=== PATIENT | female | born 1980 | race Hispanic/Latino ===

== ENCOUNTER 2019-11-23 14:25 | Emergency (ER) | payer BC ==
[~2019-11-23] VITALS: Ht 170.2 cm; Wt 68.0 kg
[2019-11-23 15:31] LABS: BASOPHILS % 0.3 % (0.0-1.0); EOSINOPHILS # (AUTO) 0.1 (0.0-0.4); EOSINOPHILS % 1.3 % (0.0-6.0); HEMOGLOBIN 9.4 g/dL (12.0-16.0); LYMPHOCYTES # (AUTO) 3.6 (1.0-3.2); LYMPHOCYTES % 39.3 % (18.0-39.1); MEAN CORPUSCULAR HEMOGLOBIN 28.7 pg (28-32); MEAN CORPUSCULAR HGB CONC 32.4 g/dL (31-35); MEAN CORPUSCULAR VOLUME 88.7 fL (81-99); MONOCYTES # (AUTO) 0.5 (0.2-0.8); MONOCYTES % 5.5 % (4.4-11.3); NEUTROPHILS # (AUTO) 4.9 (2.1-6.9); NEUTROPHILS % 53.2 % (38.7-80.0); PLATELET COUNT 357 x10e3/uL (140-360); RED BLOOD COUNT 3.27 x10e6/uL (3.6-5.1); RED CELL DISTRIBUTION WIDTH 13.9 % (11.7-14.4)
[2019-11-23 15:32] LABS: BILIRUBIN,URINE NEGATIVE (NEGATIVE); CLARITY,URINE CLEAR (CLEAR); COLOR,URINE YELLOW (YELLOW); KETONES,URINE NEGATIVE (NEGATIVE); LEUKOCYTE ESTERASE ,URINE NEGATIVE (NEGATIVE); NITRITE,URINE NEGATIVE (NEGATIVE); PROTEIN,URINE DIPSTICK NEGATIVE (NEGATIVE); URINE UROBILINOGEN 0.2 mg/dL (0.2 - 1)
[2019-11-23 15:45] LABS: EPITHELIAL CELLS,URINE RARE /LPF
[2019-11-23 15:48] LABS: ANION GAP 11.6 mmol/L (8-16); BLOOD UREA NITROGEN 8 mg/dL (7-26); BUN/CREATININE RATIO 11 (6-25); CALCIUM 8.3 mg/dL (8.4-10.2); CARBON DIOXIDE 22 mmol/L (22-29); CHLORIDE 105 mmol/L (98-107); EST GLOMERULAR FILTRATION RATE > 60 ML/MIN (60-); GLUCOSE 89 mg/dL (74-118); POTASSIUM 3.6 mmol/L (3.5-5.1); SODIUM 135 mmol/L (136-145)
--- NOTE | 2019-11-23 17:53 | Emergency Department Note ---
History of Present Illnes History of Present Illness Chief Complaint: Genitourinary History of Present Illness This is a 39 year old female arrives to the ED with complaints of vaginal bleeding, patient states she's been trying to get for the last 18 years and noted to have a positive test at home on November 07. Patient is concerned that the vaginal bleeding may mean she lost her . Chief Complaint Comment PATIENT IN FROM HOME WITH COMPLAINTS OF VAGINAL BLEEDING AFTER SEX LAST NIGHT AT APPROX 2130; STATES SHE IS APPROX 2 WEEKS LATE AND HAD 3 POSITIVE TESTS AT HOME, LMP 10/12/2019. PATIENT STATES THAT SHE CALLED HER DOCTOR AND WAS TOLD TO COME TO THE ER FOR AN ULTRASOUND, DENIES PAIN, APPEARS IN NO DISTRESS, RESP EVEN AND NONLABORED, AMBULATORY WITHOUT ASSISTANCE Historian: Patient Arrival Mode: Car Onset (how long ago): day(s) Severity: mild Onset quality: sudden Duration (how long): day(s) Timing of current episode: intermittent Chronicity: new (KENZIE JOHN DO) Past Medical/Family History Physician Review I have reviewed the patient's past medical and family history. Any updates have been documented here. (KENZIE JOHN DO) Past Medical History Recent Fever: No Clinical Suspicion of Infectio: No New/Unexplained Change in Ment: No Other Medical History: RHEUMATOID ARTHRITIS PSORIATIC ARTHRITIS PCOS PSORIASIS Past Surgical History: Appendectomy, Hip Replacement, Bariatric Surgery Other Surgery: GASTRIC SLEEVE 2018 OVARIAN CYSTS (KENZIE JOHN DO) Social History Physically hurt or threatened: No (KENZIE JOHN DO) Review of Systems Review of Systems Constitutional: Reports no symptoms EENTM: Reports no symptoms Cardiovascular: Reports no symptoms Respiratory: Reports no symptoms Gastrointestinal: Reports no symptoms Genitourinary: Reports as per HPI Musculoskeletal: Reports no symptoms Integumentary: Reports no symptoms Neurological: Reports no symptoms Psychological: Reports no symptoms Endocrine: Reports no symptoms Hematological/Lymphatic: Reports no symptoms (KENZIE JOHN DO) Physical Exam Related Data Allergies: Coded Allergies: No Known Allergies (Unverified , 11/23/19) Triage Vital Signs Vital Signs Date Time Temp Pulse Resp B/P (MAP) Pulse Ox O2 Delivery O2 Flow Rate FiO2 11/23/19 14:53 98.9 61 18 152/79 98 Room Air Vital signs reviewed: Yes (SANDHIR, AMBICA, DO) Physical Exam CONSTITUTIONAL Constitutional: Present well-developed, Present well-nourished HENT HENT: Present normocephalic, Present atraumatic, Present oropharynx clear/mo ist, Present nose normal HENT L/R: Present left ext ear normal, Present right ext ear normal EYES Eyes: Reports PERRL, Reports conjunctivae normal NECK Neck: Present ROM normal PULMONARY Pulmonary: Present effort normal, Present breath sounds normal CARDIOVASCULAR Cardiovascular: Present regular rhythm, Present heart sounds normal, Present capillary refill normal, Present normal rate GASTROINTESTINAL Abdominal: Present soft, Present nontender, Present bowel sounds normal GENITOURINARY Genitourinary: Present exam deferred SKIN Skin: Present warm, Present dry MUSCULOSKELETAL Musculoskeletal: Present ROM normal NEUROLOGICAL Neurological: Present alert, Present oriented x 3, Present no gross motor or sensory deficits PSYCHOLOGICAL Psychological: Present mood/affect normal, Present judgement normal (KENZIE JOHN, ) Results Laboratory Result Diagram: 11/23/19 1500 11/23/19 1500 Laboratory Laboratory Tests Test 11/23/19 15:00 White Blood Count 9.17 x10e3/uL (4.8-10.8) Red Blood Count 3.27 x10e6/uL (3.6-5.1) Hemoglobin 9.4 g/dL (12.0-16.0) Hematocrit 29.0 % (34.2-44.1) Mean Corpuscular Volume 88.7 fL (81-99) Mean Corpuscular Hemoglobin 28.7 pg (28-32) Mean Corpuscular Hemoglobin Concent 32.4 g/dL (31-35) Red Cell Distribution Width 13.9 % (11.7-14.4) Platelet Count 357 x10e3/uL (140-360) Neutrophils (%) (Auto) 53.2 % (38.7-80.0) Lymphocytes (%) (Auto) 39.3 % (18.0-39.1) Monocytes (%) (Auto) 5.5 % (4.4-11.3) Eosinophils (%) (Auto) 1.3 % (0.0-6.0) Basophils (%) (Auto) 0.3 % (0.0-1.0) Neutrophils # (Auto) 4.9 (2.1-6.9) Lymphocytes # (Auto) 3.6 (1.0-3.2) Monocytes # (Auto) 0.5 (0.2-0.8) Eosinophils # (Auto) 0.1 (0.0-0.4) Basophils # (Auto) 0.0 (0.0-0.1) Absolute Immature Granulocyte (auto 0.04 x10e3/uL (0-0.1) Urine Color Yellow (YELLOW) Urine Clarity Clear (CLEAR) Urine pH 5.5 (5 - 7) Urine Specific [place] 1.010 (1.010-1.025) Urine Protein Negative (NEGATIVE) Urine Glucose (UA) Negative (NEGATIVE) Urine Ketones Negative (NEGATIVE) Urine Blood Trace (NEGATIVE) Urine Nitrite Negative (NEGATIVE) Urine Bilirubin Negative (NEGATIVE) Urine Urobilinogen 0.2 mg/dL (0.2 - 1) Urine Leukocyte Esterase Negative (NEGATIVE) Urine RBC None /HPF (0-5) Urine WBC None /HPF (0-5) Urine Epithelial Cells Rare /LPF (NONE) Urine Bacteria None /HPF (NONE) Sodium Level 135 mmol/L (136-145) Potassium Level 3.6 mmol/L (3.5-5.1) Chloride Level 105 mmol/L (98-107) Carbon Dioxide Level 22 mmol/L (22-29) Anion Gap 11.6 mmol/L (8-16) Blood Urea Nitrogen 8 mg/dL (7-26) Creatinine 0.70 mg/dL (0.57-1.11) Estimat Glomerular Filtration Rate > 60 ML/MIN (60-) BUN/Creatinine Ratio 11 (6-25) Glucose Level 89 mg/dL (74-118) Calcium Level 8.3 mg/dL (8.4-10.2) Human Chorionic Gonadotropin, Quant 4321.86 mIU/mL (0-10) (KENZIE JOHN, DO) Lab results reviewed: Yes (FERCHO BUI MD) Imaging Imaging results reviewed: Yes (KENZIE JOHN, ) Imaging results reviewed: Yes Impressions Procedure: [id number] US/US OB TRANSVAG 1ST TRI SINGLE Exam Date: 11/23/19 Exam Time: 1652 REPORT STATUS: Signed EXAM: Obstetric Pelvic Ultrasound INDICATION: Vaginal bleeding COMPARISON: None TECHNIQUE: Transabdominal and transvaginal evaluation of the pelvis was performed in the transverse and longitudinal planes. CLINICAL HISTORY: 39 year old G1, P0; last menstrual period: 10/12/2019 FINDINGS: Uterus: Orientation: Anteverted Size: 7.8 x 4.4 x 5.5 cm, enlarged Mass: None Cervix: Nabothian cysts Gestational Sac: Location: Intrauterine Average sac diameter: 0.71 cm Estimated sonographic GA: 5 weeks, 2 days Appearance: Normal in contour Subchorionic hemorrhage: None Yolk sac: Not visualized. Embryo/Fetus: None visualized Right ovary Size: 2.7 x 1.9 x 2.1 cm Mass/Cyst: None. 0.8 x 0.9 x 0.9 cm cystic, mostly anechoic lesion with linear internal echoes, likely representing a small hemorrhagic cyst. Left ovary Size: 3.1 x 1.3 x 1.8 cm Mass/Cyst: None Cul-de-sac: No free fluid IMPRESSION: 1. Intrauterine of uncertain viability. This may represent early . No subchorionic hemorrhage is noted. Recommend follow-up transvaginal ultrasound in 1-2 weeks classification: Viable: can potentially result in a liveborn baby Visualized embryo with FHT Nonviable: Findings diagnostic of failure Ectopic CRL >= 7 mm and no FHT MSD >= 25 mm and no embryo No FHT >= 2 weeks after US showed GS w/o YS No FHT >= 11 days after US showed GS w/ YS Intrauterine of uncertain viability: Intrauterine GS with no FHT and no definite findings of failure of unknown location: Positive urine or serum test and no IUP or ectopic on US ?@ Diagnostic Criteria for Nonviable Early in the First Trimester N Engl J Med 2013;369:1443-51. DOI: [id number] Signed by: Dr. Tina Pena M.D. on 11/23/2019 6:06 PM Dictated By: TINA PENA MD 05 Transcribed By: AMINAH on 11/23/191805 COPY TO: KENZIE JOHN, DO~ (FERCHO BUI MD) Assessment & Plan Medical Decision Making MDM 39-year-old female arrived to the ED with vaginal bleeding in , sign out given to Dr. Bui to follow-up pelvic ultrasound. (KENZIE JOHN DO) MDM WITH BLEEDING LABS, PELVIS U/S ORDERED TO EVAL FOR IUP (FERCHO BUI MD) Assessment & Plan Final Impression: (1) Threatened miscarriage (FERCHO BUI MD) Depart Disposition: HOME, SELF-CARE Last Vital Signs Date Time Temp Pulse Resp B/P (MAP) Pulse Ox O2 Delivery O2 Flow Rate FiO2 11/23/19 14:53 98.9 61 18 152/79 98 Room Air (KENZIE JOHN DO) KENZIE JOHN DO Nov 23, 2019 17:53 FERCHO BUI MD Nov 23, 2019 19:14
--- NOTE | 2019-11-23 18:10 | Diagnostic Imaging Report ---
EXAM: Obstetric Pelvic Ultrasound INDICATION: Vaginal bleeding COMPARISON: None TECHNIQUE: Transabdominal and transvaginal evaluation of the pelvis was performed in the transverse and longitudinal planes. CLINICAL HISTORY: 39 year old G1, P0; last menstrual period: 10/12/2019 FINDINGS: Uterus: Orientation: Anteverted Size: 7.8 x 4.4 x 5.5 cm, enlarged Mass: None Cervix: Nabothian cysts Gestational Sac: Location: Intrauterine Average sac diameter: 0.71 cm Estimated sonographic GA: 5 weeks, 2 days Appearance: Normal in contour Subchorionic hemorrhage: None Yolk sac: Not visualized. Embryo/Fetus: None visualized Right ovary Size: 2.7 x 1.9 x 2.1 cm Mass/Cyst: None. 0.8 x 0.9 x 0.9 cm cystic, mostly anechoic lesion with linear internal echoes, likely representing a small hemorrhagic cyst. Left ovary Size: 3.1 x 1.3 x 1.8 cm Mass/Cyst: None Cul-de-sac: No free fluid IMPRESSION: 1. Intrauterine of uncertain viability. This may represent early . No subchorionic hemorrhage is noted. Recommend follow-up transvaginal ultrasound in 1-2 weeks classification: Viable: can potentially result in a liveborn baby Visualized embryo with FHT Nonviable: Findings diagnostic of failure Ectopic CRL >= 7 mm and no FHT MSD >= 25 mm and no embryo No FHT >= 2 weeks after US showed GS w/o YS No FHT >= 11 days after US showed GS w/ YS Intrauterine of uncertain viability: Intrauterine GS with no FHT and no definite findings of failure of unknown location: Positive urine or serum test and no IUP or ectopic on US ?@ Diagnostic Criteria for Nonviable Early in the First Trimester N Engl J Med 2013;369:1443-51. DOI: [id number] Signed by: Dr. Anton Pena M.D. on 11/23/2019 6:06 PM
--- OUTSIDE RECORDS SUMMARY | 2019-11-24 10:26 | XMS REPORT | Continuity of Care Document ---
Author Author [facility] t Organization [facility] Address [address] [place] [address] Phone Unavailable Care Team Providers [employer] Name Role Phone DO Remi CHANDLER PCP Arron JOHN Attphys Unavailable BLAISE HERNANDEZ Attphys Unavailable Payers Payer Name Policy Type Policy Number Effective Date Expiration Date S ource [employer] [place] Ppo [id number] [facility] Problems Condition Name Condition Details Condition Category Status Onset Date Resolution Date Last Treatment Date Treating Clinician Comments Source Threatened Problem Active [facility] Allergies, Adverse Reactions, Alerts Allergy Name Allergy Type Status Severity Reaction(s) Onset Date Inacti ve Date Treating Clinician Comments Source No Known Allergies DA Active U 2012-07-23 00:00:00 [facility] Social History Social Habit Start Date Stop Date Quantity Comments Source Sex Assigned At 1980 00:00:00 1980 00:00:00 Female [facility] Medications This patient has no known medications. Vital Signs Vital Name Observation Time Observation Value Comments Source Weight 2019-11-23 14:53:00 150 [lb_av] [facility] BMI (Body Mass Index) 2019-11-23 14:53:00 23.5 kg/m2 [facility] Procedures Procedure Date / Time Performed Performing Clinician Neftaly e Obstetrical transvaginal ultrasound in first trimester 2019-11-07 7 00:00:00 [facility] Plan of Care Planned Activity Planned Date Details Comments Source Instructions [facility] Encounters Start Date/Time End Date/Time Encounter Type Admission Type Attendi RUST Care Department Encounter ID Source 2019-11-23 15:30:00 2019-11-23 19:13:00 Departed Emergency Room 1 KENZIE JOHN [facility] [id number] I [facility] 2019-06-30 00:00:00 2019-06-30 00:00:00 Outpatient ZELALEM HERNANDEZ IN [facility] [id number] Enio Atkins 2019-06-29 00:00:00 2019-06-29 00:00:00 Outpatient ZELALEM HERNANDEZ IN [facility] [id number] Steen Milly Results Test Description Test Time Test Comments Results Result Comments Source US OB TRANSVAG 1ST TRI SINGLE 2019-11-23 18:03:00 [facility] [address] [address] Patient Name: CHARANJIT IBARRA MR #: [id number] : 1980 Age/Sex: 39/F Req #: [id number] Adm Physician: Ordered by: KENZIE JOHN DO Report #: [id number] Location: ER Room/Bed: Procedure: [id number] US/US OB TRANSVAG 1ST TRI SINGLE Exam Date: 11/23/19 Exam Time: 1652 REPORT STATUS: Signed EXAM: Obstetric Pelvic Ultrasound INDICATION: Vaginal bleeding COMPARISON: None TECHNIQUE: Transabdominal and transvaginal evaluation of the pelvis was performed in the transverse and longitudinal planes. CLINICAL HISTORY: 39 year old G1, P0; last menstrual period: 10/12/2019 FINDINGS: Uterus: Orientation: Anteverted Size: 7.8 x 4.4 x 5.5 cm, enlarged Mass: None Cervix: Nabothian cysts Gestational Sac: Location: Intrauterine Average sac diameter: 0.71 cm Estimated sonographic GA: 5 weeks, 2 days Appearance: Normal in contour Subchorionic hemorrhage: None Yolk sac: Not visualized. Embryo/Fetus: None visualized Right ovary Size: 2.7 x 1.9 x 2.1 cm Mass/Cyst: None. 0.8 x 0.9 x 0.9 cm cystic, mostly anechoic lesion with linear internal echoes, likely representing a small hemorrhagic cyst. Left ovary Size: 3.1 x 1.3 x 1.8 cm Mass/Cyst: None Cul-de-sac: No free fluid IMPRESSION: 1. Intrauterine of uncertain viability. This may represent early . No subchorionic hemorrhage is noted. Recommend follow-up transvaginal ultrasound in 1-2 weeks classification: Viable: can potentially result in a liveborn baby Visualized embryo with FHT Nonviable: Findings diagnostic of failure Ectopic CRL >= 7 mm and no FHT MSD >= 25 mm and no embryo No FHT >= 2 weeks after US showed GS w/o YS No FHT >= 11 days after US showed GS w/ YS Intrauterine of uncertain viability: Intrauterine GS with no FHT and no definite findings of failure of unknown location: Positive urine or serum test and no IUP or ectopic on US ?@ Diagnostic Criteria for Nonviable Early in the First Trimester N Engl J Med 2013;369:1443-51. DOI: [id number] Signed by: Dr. Anton Pena M.D. on 11/23/2019 6:06 PM Dictated By: ANTON PENA MD 05 Transcribed By: AMINAH on 11/23/191805 COPY TO: KENZIE JOHN, Blood leukocytes automated count (number/volume) 2019-11-23 15:00:00 Test Item White Blood Count (test code = 6690-2) 9.17 4.8-10.8 [facility] count (number/volume)2019-11-23 15:00:00* Test Item Value Reference Range Interpretation Comments Red Blood Count (test code = 789-8) 3.27 3.6-5.1 [facility] hemoglobin measurement (moles/volume)2019-11-23 15:00:00* Test Item Value Reference Range Interpretation Comments Hemoglobin (test code = 99896-7) 9.4 12.0-16.0 [facility] CenterAutomated blood hematocrit (volume fraction)2019-11-23 15:00:00* Test Item Value Reference Range Interpretation Comments Hematocrit (test code = 4544-3) 29.0 34.2-44.1 [facility] CenterAutomated erythrocyte mean corpuscular vrxgcv3237-25-85 15:00:00* Test Item Value Reference Range Interpretation Comments Mean Corpuscular Volume (test code = 787-2) 88.7 81-99 [facility] CenterAutomated erythrocyte mean corpuscular hemoglobin (mass per erythrocyte)2019-11-23 15:00:00* Test Item Value Reference Range Interpretation Comments Mean Corpuscular Hemoglobin (test code = 785-6) 28.7 28-32 [facility] CenterAutomated erythrocyte mean corpuscular hemoglobin concentration measurement (mass/volume)2019-11-23 15:00:00* Test Item Value Reference Range Interpretation Comments Mean Corpuscular Hemoglobin Concent (test code = 786-4) 32.4 31-35 [facility] CenterRDW ZvwDm-Biw4025-54-17 15:00:00* Test Item Value Reference Range Interpretation Comments Red Cell Distribution Width (test code = 02799-7) 13.9 11.7 -14.4 [facility] CenterAutomated blood platelet count (count/volume)2019-11-23 15:00:00* Test Item Value Reference Range Interpretation Comments Platelet Count (test code = 777-3) 357 140-360 [facility] CenterAutomated blood segmented neutrophil count as percentage of total jbinwpdqog2865-51-62 15:00:00* Test Item Value Reference Range Interpretation Comments Neutrophils (%) (Auto) (test code = 10909-9) 53.2 38.7-80.0 [facility] CenterAutom[facility] blood lymphocyte count as percentage ot total tsaaqejnsi2080-09-03 15:00:00* Test Item Value Reference Range Interpretation Comments Lymphocytes (%) (Auto) (test code = 736-9) 39.3 18.0-39.1 [facility] CenterAutom[facility] blood monocyte count as percentage of total enfiobjzjw7094-29-99 15:00:00* Test Item Value Reference Range Interpretation Comments Monocytes (%) (Auto) (test code = 5905-5) 5.5 4.4-11.3 [facility] CenterAutomated blood eosinophil count as percentage of total xibsrrvdrr2561-46-54 15:00:00* Test Item Value Reference Range Interpretation Comments Eosinophils (%) (Auto) (test code = 713-8) 1.3 0.0-6.0 [facility] CenterAutomated blood basophil count as percentage of total kvrugnuwev8849-49-84 15:00:00* Test Item Value Reference Range Interpretation Comments Basophils (%) (Auto) (test code = 706-2) 0.3 0.0-1.0 [facility] CenterFluoroscopic procedure less than one hour vjvbzjxw7112-65-67 15:00:00* Test Item Value Reference Range Interpretation Comments IM GRANULOCYTES % (test code = IM GRANULOCYTES %) 0.4 0.0- 1.0 [facility] CenterAutom[facility] blood neutrophil count 2019-11-23 15:00:00* Test Item Value Reference Range Interpretation Comments Neutrophils # (Auto) (test code = 751-8) 4.9 2.1-6.9 [facility] CenterBlood lymphocytes count (number/volume) 2019-11-23 15:00:00* Test Item Value Reference Range Interpretation Comments Lymphocytes # (Auto) (test code = 11030-8) 3.6 1.0-3.2 [facility] CenterBlood monocytes automated count (number/volume)2019-11-23 15:00:00* Test Item Value Reference Range Interpretation Comments Monocytes # (Auto) (test code = 742-7) 0.5 0.2-0.8 [facility] CenterAutomated blood eosinophil count 2019-11-23 15:00:00* Test Item Value Reference Range Interpretation Comments Eosinophils # (Auto) (test code = 711-2) 0.1 0.0-0.4 [facility] CenterAutomated blood basophil count (count/volume)2019-11-23 15:00:00* Test Item Value Reference Range Interpretation Comments Basophils # (Auto) (test code = 704-7) 0.0 0.0-0.1 [facility] CenterFluoroscopic procedure less than one hour bwkogctw1832-97-60 15:00:00* Test Item Value Reference Range Interpretation Comments Absolute Immature Granulocyte (auto (lizeth t code = Absolute Immature Granulocyte (auto) 0.04 0-0.1 [facility] CenterUrine color wtomqxpahdzis0160-33-42 15:00:00* Test Item Value Reference Range Interpretation Comments Urine Color (test code = 5778-6) YELLOW YELLOW [facility] CenterUrine wlyhxjl9820-78-59 15:00:00* Test Item Value Reference Range Interpretation Comments Urine Clarity (test code = 42120-4) CLEAR CLEAR [facility] Centerpecific gravity of Urine by Test strip 2019-11-23 15:00:00* Test Item Value Reference Range Interpretation Comments Urine Specific [place] (test code = 5811-5) 1.010 1.010-1.02 5 [facility] CenterU[facility] pH measurement by automated test wdhss3603-08-14 15:00:00* Test Item Value Reference Range Interpretation Comments Urine pH (test code = 65188-9) 5.5 5-7 [facility] CenterUrine leukocyte esterase detection by reducqkm1111-49-89 15:00:00* Test Item Value Reference Range Interpretation Comments Urine Leukocyte Esterase (test code = 5799-2) NEGATIVE NEGATIVE [facility] CenterUrine nitrite jcewuxogd5617-66-90 15:00:00* Test Item Value Reference Range Interpretation Comments Urine Nitrite (test code = 35344-0) NEGATIVE NEGATIVE [facility] CenterUrine protein measurement by test strip (mass/volume)2019-11-23 15:00:00* Test Item Value Reference Range Interpretation Comments Urine Protein (test code = 5804-0) NEGATIVE NEGATIVE [facility] CenterUrine glucose fhecmsrmy3250-95-86 15:00:00* Test Item Value Reference Range Interpretation Comments Urine Glucose (UA) (test code = 2349-9) NEGATIVE NEGATIVE [facility] CenterUrine ketones detection by automated test iqpul4238-21-51 15:00:00* Test Item Value Reference Range Interpretation Comments Urine Ketones (test code = 50523-7) NEGATIVE NEGATIVE [facility] CenterUrine urobilinogen measurement by test strip (mass/volume)2019-11-23 15:00:00* Test Item Value Reference Range Interpretation Comments Urine Urobilinogen (test code = 00713-4) 0.2 0.2-1 [facility] CenterUrine total bilirubin measurement (mass/volume)2019-11-23 15:00:00* Test Item Value Reference Range Interpretation Comments Urine Bilirubin (test code = 1978-6) NEGATIVE NEGATIVE [facility] CenterUrine erythrocytes hhqjepjko5603-58-25 15:00:00* Test Item Value Reference Range Interpretation Comments Urine Blood (test code = 69020-7) TRACE NEGATIVE [facility] CenterAutomated urine sediment leukocyte count by microscopy (number/high power field)2019-11-23 15:00:00* Test Item Value Reference Range Interpretation Comments Urine WBC (test code = 5821-4) NONE 0-5 [facility] CenterErythrocytes detection in urine sediment by light wyktxzmtyw4484-81-20 15:00:00* Test Item Value Reference Range Interpretation Comments Urine RBC (test code = 79396-2) NONE 0-5 [facility] CenterBacteria detection in urine sediment by light faucsftxlr7104-60-67 15:00:00* Test Item Value Reference Range Interpretation Comments Urine Bacteria (test code = 00217-8) NONE NONE [facility] CenterEpithelial cells detection in urine sediment by light pwzaeobypp0740-92-38 15:00:00* Test Item Value Reference Range Interpretation Comments Urine Epithelial Cells (test code = 55067-9) RARE NONE [facility] Centererum or plasma sodium measurement (moles/volume)2019-11-23 15:00:00* Test Item Value Reference Range Interpretation Comments Sodium Level (test code = 2951-2) 135 136-145 [facility] Centererum or plasma potassium measurement (moles/volume)2019-11-23 15:00:00* Test Item Value Reference Range Interpretation Comments Potassium Level (test code = 2823-3) 3.6 3.5-5.1 [facility] Centererum or plasma chloride measurement (moles/volume)2019-11-23 15:00:00* Test Item Value Reference Range Interpretation Comments Chloride Level (test code = 2075-0) 105 98-107 [facility] Centererum or plasma carbon dioxide, total measurement (moles/volume)2019-11-23 15:00:00* Test Item Value Reference Range Interpretation Comments Carbon Dioxide Level (test code = 2028-9) 22 22-29 [facility] Centererum or plasma anion wod3966-00-15 15:00:00* Test Item Value Reference Range Interpretation Comments Anion Gap (test code = 58973-1) 11.6 8-16 [facility] Centererum or plasma urea nitrogen measurement (mass/volume)2019-11-23 15:00:00* Test Item Value Reference Range Interpretation Comments Blood Urea Nitrogen (test code = 3094-0) 8 7-26 [facility] Centererum or plasma creatinine measurement (mass/volume)2019-11-23 15:00:00* Test Item Value Reference Range Interpretation Comments Creatinine (test code = 2160-0) 0.70 0.57-1.11 [facility] Centererum or plasma urea nitrogen/creatinine mass zbehy4899-67-27 15:00:00* Test Item Value Reference Range Interpretation Comments BUN/Creatinine Ratio (test code = 3097-3) 11 6-25 [facility] CenterEstimated glomerular filtration rate (GFR) npgcafdyanrch9062-25-59 15:00:00* Test Item Value Reference Range Interpretation Comments Estimat Glomerular Filtration Rate (test code = 215556220) > 60 >60 Ranges were taken from the National Kidney Disease Education Program and the [facility] Foundation literature.Reference ranges:60 or greater: Qggqez80-25 ( for 3 consecutive months): Chronic kidney disease 15 or less: Kidney failurePermian Regional Medical CenterGlucose kyyhomifevc7639-36-41 15:00:00* Test Item Value Reference Range Interpretation Comments Glucose Level (test code = JXP0383) 89 74-118 [facility] Centererum or plasma calcium measurement (mass/volume)2019-11-23 15:00:00* Test Item Value Reference Range Interpretation Comments Calcium Level (test code = 71736-2) 8.3 8.4-10.2 [facility] Centererum or plasma chorionic gonadotropin measurement (mass/volume)2019-11-23 15:00:00* Test Item Value Reference Range Interpretation Comments Human Chorionic Gonadotropin, Quant (test code = 57725-3) 4321.86 0-10 [facility]- XR TIBIA/FIBULA 2 V BS3929-14-95 22:33:00 FAX: Pilar Braswell NP [place]: St: REG Name: CHARANJIT JORGE [facility] : [birth year] Age/S: 38/F [address] Unit #: [id number] Loc: [place] [address] Phys: Pilar Braswell NP Acct: [id number] Dis Date: Status: REG ER PHONE #: [phone] Exam Date: 04/30/20182221 FAX #: [phone] Reason: laceration EXAMS: CPT CODE: [id number] XR TIBIA/FIBULA 2 [place] [id number] HISTORY: Laceration. COMPARISON: None available. No radiopaque foreign bodies. Phlebo liths seen anteriorly. Laceration of the distal leg anteriorly without [place] erosion or destruction. No fracture. Ankle joint is preserved. Knee joint is preserved. No osteochondral lesions. IMPRESSION: No acute fracture or dislocation or radiopaque foreign bodies . at 2233 * * Reported and signed by: Ricardo Beard M.D. CC: Pilar Braswell NP Technol ogist: RT COLBY(R) Trnscrd Date/Time/ By: 04/30/2018 (3298) : By: [email or web address] Orig Print D/T: S: 04/30/2018 (2 667) PAGE 1 Signed Report
== END 2019-11-23 19:13 | disposition home or self-care (01) ==
LOC: ER 15:30
DX: O20.9 Hemorrhage in early pregnancy, unspecified (principal); O20.0 Threatened abortion; E28.2 Polycystic ovarian syndrome; M06.9 Rheumatoid arthritis, unspecified; Z98.84 Bariatric surgery status
CPT/HCPCS: 36415; 76817; 80048; 81001; 84702; 85025; 99284